=== PATIENT | male | born 1960 | race African-American/Black ===

== ENCOUNTER 2017-07-02 08:42 | Emergency (ER) | payer OTHER ==
[~2017-07-02] VITALS: Ht 185.4 cm; Wt 106.6 kg
--- NOTE | 2017-07-02 09:00 | NUR ---
seen by Dr Hunter.
--- NOTE | 2017-07-02 09:16 | NUR ---
refused IM medication. Dr Dale larson MD talked to the patient. patient agreed to take IM injection. medicated with totadol IM via left deltoid muscle
--- NOTE | 2017-07-02 09:20 | NUR ---
discharge prescriptions and home going instructions given to patient
[2017-07-02 09:34] VITALS: BP 160/110
== END 2017-07-02 09:38 | disposition home or self-care (01) ==
LOC: ER 08:42
DX: G89.29 Other chronic pain (principal); M54.5 Low back pain; K08.89 Other specified disorders of teeth and supporting structures; Z88.0 Allergy status to penicillin; Z91.010 Allergy to peanuts; Z91.013 Allergy to seafood
CPT/HCPCS: 96372; 99283; A4663; J1885

== ENCOUNTER 2017-07-04 22:57 | Emergency (ER) | payer OTHER ==
[~2017-07-04] VITALS: Ht 185.4 cm; Wt 106.6 kg
--- NOTE | 2017-07-04 23:10 | NUR ---
Dr Hunter into eval patient
--- NOTE | 2017-07-04 23:24 | NUR ---
Patient states will go home and retrieved medication that he was prescribed at [facility] prior to checking into here and bring them back here to get another Rx from Dr Hunter. He states he has allery to medication that he was prescribed at [facility]
--- NOTE | 2017-07-04 23:25 | NUR ---
Patient eloped from facility. ER physician notified.
== END 2017-07-04 23:33 | disposition left against medical advice (07) ==
LOC: ER 22:57
DX: K08.89 Other specified disorders of teeth and supporting structures (principal); Z76.5 Malingerer [conscious simulation]; Z88.0 Allergy status to penicillin; Z91.010 Allergy to peanuts; Z91.013 Allergy to seafood
CPT/HCPCS: 99281; A4663

== ENCOUNTER 2018-04-01 19:27 | Emergency (ER) | payer MEDICAID, OTHER ==
[~2018-04-01] VITALS: Ht 182.9 cm; Wt 104.3 kg
--- NOTE | 2018-04-01 20:12 | NUR ---
CORROSION TECHNICIAN AT BEDSIDE FOR BLOOD DRAW
--- NOTE | 2018-04-01 20:22 | NUR ---
XRAY AT BEDSIDE
[2018-04-01 20:28] LABS: BASOPHILS # (AUTO) 0.1 K/uL (0.0-8.0); BASOPHILS % (AUTO) 0.9 % (0.0-2.0); EOSINOPHILS # (AUTO) 0.1 K/uL (0.0-0.7); EOSINOPHILS % (AUTO) 0.9 % (0.0-7.0); HEMATOCRIT 36.2 % (36.7-47.1); HEMOGLOBIN 12.4 g/dL (12.5-16.3); LYMPHOCYTES # (AUTO) 2.3 K/uL (20.0-40.0); LYMPHOCYTES % (AUTO) 28.5 % (20.5-51.5); MEAN CORPUSCULAR HEMOGLOBIN 30.9 uug (23.8-33.4); MEAN CORPUSCULAR HGB CONC 34 g/dL (32.5-36.3); MEAN CORPUSCULAR VOLUME 90.4 fL (73.0-96.2); MONOCYTES # (AUTO) 0.6 K/uL (2.0-10.0); MONOCYTES % (AUTO) 7.4 % (0.0-11.0); NEUTROPHILS # (AUTO) 5.1 K/uL (1.8-8.9); NEUTROPHILS % (AUTO) 62.3 % (38.5-71.5); PLATELET COUNT (AUTO) 274 K/uL (152-348); WHITE BLOOD COUNT (AUTO) 8.2 K/uL (3.6-10.2)
[2018-04-01 20:34] LABS: CREATININE 1.2 mg/dL (0.6-1.3)
[2018-04-01 20:45] LABS: BILIRUBIN,TOTAL 0.4 mg/dL (0.2-1.0); TOTAL PROTEIN, SERUM 7.6 g/dL (6.4-8.2)
--- NOTE | 2018-04-01 21:55 | NUR ---
Patient discharged to home in stable conditon. Written and verbal after care instructions given. Patient verbalizes understanding of instructions. Patient reported "feeling better" prior to discharge. Patient able to ambulate unassisted with steady gait. Patient left with all personal belongings.
[2018-04-01 22:02] VITALS: BP 134/102
== END 2018-04-01 21:55 | disposition home or self-care (01) ==
LOC: ER 19:31
DX: J20.9 Acute bronchitis, unspecified (principal); R94.31 Abnormal electrocardiogram [ECG] [EKG]; R03.0 Elevated blood-pressure reading, without diagnosis of hypertension; Z88.0 Allergy status to penicillin; Z91.013 Allergy to seafood; Z91.010 Allergy to peanuts
CPT/HCPCS: 36415; 71045; 80053; 85025; 93005; 99285; A4663

== ENCOUNTER 2018-08-24 14:08 | Emergency (ER) | payer OTHER ==
[~2018-08-24] VITALS: Ht 188 cm; Wt 111.1 kg
--- NOTE | 2018-08-24 14:19 | NUR ---
PATIENT ALERT AND ORIENTED AND ABLE TO FOLLOW COMMANDS. RESPIRATIONS EVEN AND UNLABORED NO DISTRESS AT THIS TIME. PATIENT REPORTS PERSISTANT COUGH AND SOME MID STERNAL CHEST PAIN THAT HE REPORTS IS FROM COUGHING. PATIENT DENIES RADIATION OF PAIN NO N/V SOB DIZZINESS OR DIAPHORESIS
[2018-08-24 14:33] VITALS: BP 148/78
== END 2018-08-24 14:36 | disposition home or self-care (01) ==
LOC: ER 14:08
DX: J20.9 Acute bronchitis, unspecified (principal); Z88.0 Allergy status to penicillin; Z91.010 Allergy to peanuts; Z91.013 Allergy to seafood
CPT/HCPCS: A4663

== ENCOUNTER 2018-10-07 13:22 | Emergency (ER) | payer OTHER ==
[~2018-10-07] VITALS: Ht 188 cm; Wt 106.6 kg
--- NOTE | 2018-10-07 13:38 | NUR ---
mse completed, pt d/c'd home, aci/rx x1 given. pt ambulated w/o diff/took all belongings.
[2018-10-07 13:41] VITALS: BP 138/68
== END 2018-10-07 13:41 | disposition home or self-care (01) ==
LOC: ER 13:31
DX: R05 Cough (principal); Z76.5 Malingerer [conscious simulation]; Z88.0 Allergy status to penicillin; Z91.010 Allergy to peanuts; Z91.013 Allergy to seafood
CPT/HCPCS: A4663

== ENCOUNTER 2018-10-12 19:35 | Emergency (ER) | END 2018-10-12 20:49 | disposition home or self-care (01) | DX: R05 Cough (principal); F17.200 Nicotine dependence, unspecified, uncomplicated; Z76.0 Encounter for issue of repeat prescription; Z88.0 Allergy status to penicillin; Z88.2 Allergy status to sulfonamides; Z91.010 Allergy to peanuts ==

== ENCOUNTER 2018-11-02 15:53 | Emergency (ER) | payer OTHER ==
[~2018-11-02] VITALS: Ht 188 cm; Wt 108.9 kg
--- NOTE | 2018-11-02 16:37 | NUR ---
PATIENT WAS SEEN BY . DC, RX AND FOLLOW UP INSTRUCTIONS GIVEN AND EXPLAINED TO PATIENT WHO STATES HE UNDERSTANDS ALL INSTRUCTIONS.
== END 2018-11-02 16:39 | disposition home or self-care (01) ==
LOC: ER 15:53
DX: K04.7 Periapical abscess without sinus (principal); I10 Essential (primary) hypertension; F17.200 Nicotine dependence, unspecified, uncomplicated; Z88.0 Allergy status to penicillin; Z91.010 Allergy to peanuts; Z91.013 Allergy to seafood
CPT/HCPCS: A4663

== ENCOUNTER 2019-08-12 19:05 | Emergency (ER) | payer OTHER ==
[~2019-08-12] VITALS: Ht 185.4 cm; Wt 111.6 kg
[2019-08-12] MEDS ORDERED: ALBUTEROL SULFATE 2.5 MG/3 ML NEBU NEB ONE (20:00)
[2019-08-12 20:05] LABS: BASOPHILS % (AUTO) 0.6 % (0.0-2.0); EOSINOPHILS # (AUTO) 0.1 K/uL (0.0-0.7); EOSINOPHILS % (AUTO) 0.8 % (0.0-7.0); HEMATOCRIT 38.4 % (36.7-47.1); HEMOGLOBIN 12.7 g/dL (12.5-16.3); LYMPHOCYTES # (AUTO) 1.9 K/uL (20.0-40.0); MEAN CORPUSCULAR HEMOGLOBIN 30.9 uug (23.8-33.4); MEAN CORPUSCULAR HGB CONC 33 g/dL (32.5-36.3); MEAN CORPUSCULAR VOLUME 93.6 fL (73.0-96.2); MONOCYTES # (AUTO) 0.6 K/uL (2.0-10.0); MONOCYTES % (AUTO) 7.3 % (0.0-11.0); NEUTROPHILS % (AUTO) 66.3 % (38.5-71.5); PLATELET COUNT (AUTO) 268 K/uL (152-348); WHITE BLOOD COUNT (AUTO) 7.5 K/uL (3.6-10.2)
[2019-08-12] MEDS ORDERED: ALBUTEROL SULFATE 2.5 MG/3 ML NEBU ONE (20:16)
--- NOTE | 2019-08-12 20:21 | NUR ---
RT AT BEDSIDE FOR BREATHING TREATMENT PT ABLE TO TOLERATE REASSESSED ACCORDINGLY
[2019-08-12 20:24] LABS: CREATININE 1.2 mg/dL (0.6-1.3); POTASSIUM 3.7 mmol/L (3.5-5.1)
[2019-08-12] MEDS ORDERED: IBUPROFEN 600 MG TABLET PO ONE (20:45)
[2019-08-12] MEDS ORDERED: IBUPROFEN 600 MG TABLET ONE (20:50)
--- NOTE | 2019-08-12 20:56 | NUR ---
PT ABLE TO TOLERATE PO MEDS ORDERED Patient discharged to home in stable conditon. Written and verbal after care instructions given. Patient verbalizes understanding of instructions.
[2019-08-12 21:05] VITALS: BP 150/89
== END 2019-08-12 21:00 | disposition home or self-care (01) ==
LOC: ER 19:05
DX: R07.89 Other chest pain (principal); R05 Cough; I10 Essential (primary) hypertension; F17.200 Nicotine dependence, unspecified, uncomplicated; Z88.0 Allergy status to penicillin; Z91.010 Allergy to peanuts; Z91.013 Allergy to seafood
CPT/HCPCS: 36415; 70030-TC; 70360; 71045; 85025; 93005; A4663

== ENCOUNTER 2020-02-09 16:13 | Emergency (ER) | payer OTHER ==
[~2020-02-09] VITALS: Ht 185.4 cm; Wt 108.9 kg
[2020-02-09] MEDS ORDERED: ALBUTEROL SULFATE 8 GM HFA.AER.AD IH STA (16:46)
[2020-02-09] MEDS ORDERED: predniSONE 10 MG TABLET ONE (16:54)
[2020-02-09] MEDS ORDERED: predniSONE 50 MG TABLET ONE (16:54)
[2020-02-09] MEDS ORDERED: HYDROCODONE/APAP 5-325MG TABLET ONE (16:54)
[2020-02-09] MEDS ORDERED: HYDROCODONE/APAP 5-325MG TABLET PO ONE (17:00)
[2020-02-09] MEDS ORDERED: predniSONE 20 MG TABLET PO ONE (17:00)
[2020-02-09 17:24] LABS: BASOPHILS # (AUTO) 0.1 K/uL (0.0-8.0); BASOPHILS % (AUTO) 0.8 % (0.0-2.0); EOSINOPHILS # (AUTO) 0.1 K/uL (0.0-0.7); EOSINOPHILS % (AUTO) 1.2 % (0.0-7.0); HEMATOCRIT 36.8 % (36.7-47.1); HEMOGLOBIN 12.3 g/dL (12.5-16.3); LYMPHOCYTES # (AUTO) 2.4 K/uL (20.0-40.0); LYMPHOCYTES % (AUTO) 31.1 % (20.5-51.5); MEAN CORPUSCULAR HEMOGLOBIN 30.3 uug (23.8-33.4); MEAN CORPUSCULAR HGB CONC 33 g/dL (32.5-36.3); MONOCYTES # (AUTO) 0.6 K/uL (2.0-10.0); MONOCYTES % (AUTO) 7.6 % (0.0-11.0); NEUTROPHILS # (AUTO) 4.6 K/uL (1.8-8.9); NEUTROPHILS % (AUTO) 59.3 % (38.5-71.5); PLATELET COUNT (AUTO) 281 K/uL (152-348); RED BLOOD CELL COUNT(AUTO) 4.05 MIL/uL (4.06-5.63); WHITE BLOOD COUNT (AUTO) 7.7 K/uL (3.6-10.2)
[2020-02-09 17:37] LABS: CREATININE 1.3 mg/dL (0.6-1.3); POTASSIUM 4.6 mmol/L (3.5-5.1)
[2020-02-09 17:42] LABS: BILIRUBIN,DIRECT 0.1 mg/dL (0.0-0.2); BILIRUBIN,TOTAL 0.2 mg/dL (0.2-1.0); TOTAL PROTEIN, SERUM 7.3 g/dL (6.4-8.2)
--- NOTE | 2020-02-09 18:47 | NUR ---
patient was seen by . Tests complete. DC, Rx and follow up insructions given and explained to patient who states he understands all instructions
== END 2020-02-09 18:48 | disposition home or self-care (01) ==
LOC: ER 16:13
DX: S06.0X9A Concussion with loss of consciousness of unspecified duration, initial encounter (principal); R40.2362 Coma scale, best motor response, obeys commands, at arrival to emergency department; R40.2142 Coma scale, eyes open, spontaneous, at arrival to emergency department; R40.2252 Coma scale, best verbal response, oriented, at arrival to emergency department; W22.8XXA Striking against or struck by other objects, initial encounter; Y92.69 Other specified industrial and construction area as the place of occurrence of the external cause; Y99.0 Civilian activity done for income or pay; S16.1XXA Strain of muscle, fascia and tendon at neck level, initial encounter; H43.392 Other vitreous opacities, left eye; J20.9 Acute bronchitis, unspecified; R06.2 Wheezing; H54.61 Unqualified visual loss, right eye, normal vision left eye; Z86.69 Personal history of other diseases of the nervous system and sense organs; F17.200 Nicotine dependence, unspecified, uncomplicated; R94.31 Abnormal electrocardiogram [ECG] [EKG]
CPT/HCPCS: 36415; 70450; 71045; 72125; 80048; 80076; 83880; 84484; 85025; 93005; 99285; J7512 ×2; 70030-TC; A4663; J3535